=== PATIENT | male | born 1975 | race Caucasian/White ===

== ENCOUNTER 2019-02-18 20:29 | Emergency (ER) | payer MEDICAID, OTHER ==
[2019-02-18 20:38] VITALS: BP 144/91
--- NOTE | 2019-02-18 21:35 | EDM.PDOC ---
ED HPI GENERAL MEDICAL PROBLEM - General Chief Complaint: Skin Complaint Stated Complaint: RASH ON ARMS Time Seen by Provider: 02/18/19 21:10 Source of Information: Reports: Patient, RN Notes Reviewed, Significant Other ( Girlfriend) History Limitations: Reports: No Limitations - History of Present Illness INITIAL COMMENTS - FREE TEXT/NARRATIVE: The patient states that he has had a rash to his bilateral axillae, associated with a tingling and burning sensation, that has been coming and going for the past 3 months. He states that the rash will typically be present for 3-7 days, then gone for 4-5 days. He has not identified any modifiers, such as eating hot or sweaty, or whether or not he bathes. He has not tried any itpq-gis-wybmawi or home remedies to treat his symptoms. He has not sought medical evaluation of this prior to today. He patient's PCP is at the [facility]. Bilateral Axillary Pain Score (Numeric/FACES): 4 - Related Data Allergies Allergy/AdvReac Type Severity Reaction Status Date / Time Penicillins Allergy Hives Verified 02/18/19 20:36 Home Meds: Home Meds . [No Known Home Meds] 09/19/16 [History] Past Medical History Endocrine/Metabolic History: Reports: Obesity/BMI 30+ - Infectious Disease History Infectious Disease History: Reports: Hepatitis C (Hep C screen 09/21/2016 strongly positive) - Past Surgical History HEENT Surgical History: Reports: Adenoidectomy, Tonsillectomy Musculoskeletal Surgical History: Reports: Other (See Below) (Left 5th finger reattachment) Dermatological Surgical History: Reports: Skin Graft (right thumb) Social & Family History - Tobacco Use Smoking Status *Q: Current Every Day Smoker Years of Tobacco use: 24 Packs/Tins Daily: 1 - Caffeine Use Caffeine Use: Reports: Coffee, Soda - Alcohol Use Alcohol Use History: Yes Days Per Week of Alcohol Use: 7 Number of Drinks Per Day: 10 Total Drinks Per Week: 70 Alcohol Use Frequency: Daily - Recreational Drug Use Recreational Drug Use: No - Living Situation & Occupation Living situation: Reports: Single, Alone Occupation: Employed ([employer]) ED ROS GENERAL - Review of Systems Review Of Systems: ROS reveals no pertinent complaints other than HPI. ED EXAM, SKIN/RASH Exam: See Below Exam Limited By: No Limitations General Appearance: Alert, WD/WN, No Apparent Distress Skin: Warm, Dry, Intact, Normal Color, Erythema (Patches of erythema in each of the intertriginous areas of the patient's bilateral axilla, with a few satellite lesions, consistent with Mindi dermatitis.) Lymphatic: No Adenopathy Course - Vital Signs Last Recorded V/S: Last Vital Signs Temp 36.2 C 02/18/19 20:37 Pulse 84 02/18/19 20:37 Resp 16 02/18/19 20:37 BP 144/91 H 02/18/19 20:37 Pulse Ox 96 02/18/19 20:37 - Re-Assessments/Exams Free Text/Narrative Re-Assessment/Exam: 02/18/19 21:30 The patient appears to have a candidal infection to the intertriginous areas of his bilateral axillae. There is an increased risk of this occurring in patients with diabetes, therefore for today's purposes I have ordered an Accu-Chek, but no other blood work is necessary. Treatment consists of an ltba-csx-bwpkvay antifungal cream or spray, such as clortrimazole, miconazole, or tolnaftate. In review of the patient's prior medical records, I see that his hepatitis C antibody was strongly reactive on 09/19/2016. The patient tells me that he subsequently followed up with a Regulatory Compliance Manager, who told him that his hepatitis was due to heavy alcohol intake, and not due to hepatitis C, however, I have no way of determining if a confirmatory hepatitis C test was performed. I am therefore recommending that the patient follow up with his PCP at the [facility] to be rechecked for hepatitis C, particularly in light that the patient continues to drink heavily. If the patient does in fact have hepatitis C, alcohol significantly increases his risk of developing liver cancer. 02/18/19 22:03 Notified that the patient eloped the ED, without notifying the staff, prior to having his blood sugar checked. Departure - Departure Time of Disposition: 22:03 Disposition: Eloped 07 Condition: Good Clinical Impression: Mindi infection of flexural skin - Discharge Information *PRESCRIPTION DRUG MONITORING PROGRAM REVIEWED*: Not Applicable *COPY OF PRESCRIPTION DRUG MONITORING REPORT IN PATIENT CAILIN: Not Applicable Referrals: PCP,None [Primary Care Provider] -
== END 2019-02-18 21:50 | disposition left against medical advice (07) ==
LOC: JD.ED 20:29
DX: B37.2 Candidiasis of skin and nail (principal); F17.210 Nicotine dependence, cigarettes, uncomplicated; Z88.0 Allergy status to penicillin
CPT/HCPCS: 99281; 99282

== ENCOUNTER 2019-03-13 22:44 | Emergency (ER) | payer OTHER ==
[2019-03-13 22:54] VITALS: BP 171/100
--- NOTE | 2019-03-13 23:04 | EDM.PDOC ---
ED HPI GENERAL MEDICAL PROBLEM - General Chief Complaint: Skin Complaint Stated Complaint: groin pain Time Seen by Provider: 03/13/19 23:04 - History of Present Illness INITIAL COMMENTS - FREE TEXT/NARRATIVE: 44-year-old male since the emergency room with some lumps in his lower abdomen. Patient has had these lumps for a couple weeks he tried to drain one several days ago and released a very small amount of exudative material. He has some discomfort in this area. Patient has not had any fevers or chills. He has not had any other abdominal discomfort no nausea vomiting constipation diarrhea he said no burning or frequency with urination no testicular pain. Lower Abdomen Pain Score (Numeric/FACES): 7 - Related Data Allergies Allergy/AdvReac Type Severity Reaction Status Date / Time Penicillins Allergy Hives Verified 02/18/19 20:36 Home Meds: Home Meds Doxycycline [Vibramycin] 100 mg PO BID #20 cap 03/13/19 [Rx] Past Medical History Gastrointestinal History: Reports: Other (See Below) Other Gastrointestinal History: acute hepatits d/t alcohol Musculoskeletal History: Reports: Other (See Below) Other Musculoskeletal History: Tendon repair Psychiatric History: Reports: Anxiety Endocrine/Metabolic History: Reports: Obesity/BMI 30+ - Infectious Disease History Infectious Disease History: Reports: Hepatitis C - Past Surgical History HEENT Surgical History: Reports: Adenoidectomy, Tonsillectomy Musculoskeletal Surgical History: Reports: Other (See Below) Dermatological Surgical History: Reports: Skin Graft Social & Family History - Tobacco Use Smoking Status *Q: Current Every Day Smoker Years of Tobacco use: 5 Packs/Tins Daily: 0.2 - Caffeine Use Caffeine Use: Reports: Coffee, Soda - Recreational Drug Use Recreational Drug Use: No - Living Situation & Occupation Living situation: Reports: Single, Alone Occupation: Employed ([email or web address]) ED ROS GENERAL - Review of Systems Review Of Systems: See Below Constitutional: Reports: No Symptoms HEENT: Reports: Vertigo Cardiovascular: Reports: No Symptoms GI/Abdominal: Reports: No Symptoms : Reports: No Symptoms Neurological: Reports: No Symptoms, Other (He is a chronic alcoholic and is located different methods to quit drinking we've given him some information to follow-up at the [facility]) ED EXAM, SKIN/RASH Exam: See Below Exam Limited By: No Limitations General Appearance: Alert, No Apparent Distress Head: Atraumatic, Normocephalic Neck: Normal Inspection, Supple, Non-Tender, Full Range of Motion Respiratory/Chest: No Respiratory Distress, Lungs Clear, Normal Breath Sounds, No Accessory Muscle Use, Chest Non-Tender Cardiovascular: Normal Peripheral Pulses, Regular Rate, Rhythm, No Edema, No Gallop, No JVD, No Murmur, No Rub GI/Abdominal: Normal Bowel Sounds, Soft, Non-Tender Neurological: Alert, Oriented, Normal Cognition Skin: Warm, Dry, Intact, Other (He has 4 small abscesses in varying degrees of healing over the mons pubis the central his largest with with she is circular roughly 1-1/2 cm and tender no area to drain at this point this is a one he worked on several days ago.) Course - Vital Signs Last Recorded V/S: Last Vital Signs Temp 36.9 C 03/13/19 22:51 Pulse 107 H 03/13/19 22:51 Resp 20 03/13/19 22:51 BP 171/100 H 03/13/19 22:51 Pulse Ox 171 H 03/13/19 22:51 Departure - Departure Time of Disposition: 23:18 Disposition: Home, Self-Care 01 Clinical Impression: Folliculitis - Discharge Information Prescriptions: Doxycycline [Vibramycin] 100 mg PO BID #20 cap Referrals: PCP,None [Primary Care Provider] - Forms: ED Department Discharge Additional Instructions: Return to the emergency room with any questions problems worsening symptoms. Take the doxycycline, this is an antibiotic, one twice daily until all gone use warm compresses 4-5 times a day over the affected skin. Follow-up in your clinic early next week for recheck
[2019-03-13] MEDS ORDERED: Doxycycline 100 MG Cap PO ONE (23:19)
== END 2019-03-13 23:30 | disposition home or self-care (01) ==
LOC: JD.ED 22:44
DX: L73.9 Follicular disorder, unspecified (principal); E66.9 Obesity, unspecified; F17.210 Nicotine dependence, cigarettes, uncomplicated; Z98.890 Other specified postprocedural states; Z88.0 Allergy status to penicillin
CPT/HCPCS: 99283; A9270

== ENCOUNTER 2019-03-31 17:32 | Emergency (ER) | payer OTHER ==
[2019-03-31 17:46] VITALS: BP 150/87
[2019-03-31] MEDS ORDERED: LORazepam 2 MG/ML SDV IVPUSH ONE (18:21)
[2019-03-31] MEDS ORDERED: Dextrose 5%-0.9% NaCl 1,000 ML IV SCH (18:30)
--- NOTE | 2019-03-31 19:30 | CT ---
Head CT Technique: Multiple axial sections through the brain were obtained. Intravenous contrast was not utilized. Comparison: No prior intracranial imaging is available. Findings: Ventricles along the basal cisterns and sulci over convexities are within normal limits for the patient's age. No abnormal parenchymal densities are seen. No evidence of intracranial hemorrhage. No midline shift or mass effect is seen. Bone window settings shows no discrete calvarial abnormality. Visualized sinuses are clear. Impression: 1. Nothing acute is appreciated on noncontrast head CT exam. Consider nonemergent MRI to further evaluate patient's symptoms. Diagnostic code #1
--- NOTE | 2019-03-31 20:10 | EDM.PDOC ---
ED HPI GENERAL MEDICAL PROBLEM - General Chief Complaint: Neurological Problem Stated Complaint: SEIZURE AT WORK Time Seen by Provider: 03/31/19 17:54 Source of Information: Reports: Patient History Limitations: Reports: No Limitations - History of Present Illness INITIAL COMMENTS - FREE TEXT/NARRATIVE: 44 y/o male presents to ER with cc he had a witnessed seizure at work today. Patient reports that he has not had a seizure in the past. He does state that he feels foggy. He admits to drinking alcohol 3-4 times in the week he drinks beer as well as whiskey and drinks up to a fifth of more depending on what is going on. He admits his last drink was yesterday afternoon. He denies any neck pain and head pain blurred vision weakness or fatigue. He denies any fever or chills. He does not take any medications on a regular basis. His primary care provider is at the [place]. He is accompanied by his girlfriend. Onset: Today, Sudden Onset Date: 03/31/19 Onset Time: 16:00 Duration: Resolved Prior to Arrival Severity: Mild Improves with: Reports: None Worsens with: Reports: None Associated Symptoms: Reports: Seizure, Other (short term memory loss). Denies: Confusion, Chest Pain, Fever/Chills, Nausea/Vomiting, Shortness of Breath, Syncope - Related Data Allergies Allergy/AdvReac Type Severity Reaction Status Date / Time Penicillins Allergy Hives Verified 03/31/19 17:46 Home Meds: Home Meds hydrOXYzine pamoate [Vistaril] 25 mg PO Q6H 5 Days #20 cap 03/31/19 [Rx] Past Medical History Gastrointestinal History: Reports: Other (See Below) Other Gastrointestinal History: acute hepatits d/t alcohol Musculoskeletal History: Reports: Other (See Below) Other Musculoskeletal History: Tendon repair Psychiatric History: Reports: Anxiety Endocrine/Metabolic History: Reports: Obesity/BMI 30+ - Infectious Disease History Infectious Disease History: Reports: Hepatitis C - Past Surgical History HEENT Surgical History: Reports: Adenoidectomy, Tonsillectomy Musculoskeletal Surgical History: Reports: Other (See Below) Dermatological Surgical History: Reports: Skin Graft Social & Family History - Tobacco Use Smoking Status *Q: Light Tobacco Smoker Years of Tobacco use: 15 Packs/Tins Daily: 0.2 - Caffeine Use Caffeine Use: Reports: Soda - Recreational Drug Use Recreational Drug Use: No - Living Situation & Occupation Living situation: Reports: Single, Alone Occupation: Employed ([employer]) ED ROS GENERAL - Review of Systems Review Of Systems: See Below Constitutional: Denies: Fever, Chills HEENT: Reports: No Symptoms Respiratory: Denies: Shortness of Breath Cardiovascular: Denies: Chest Pain Endocrine: Reports: Fatigue GI/Abdominal: Denies: Abdominal Pain : Reports: No Symptoms Musculoskeletal: Denies: Neck Pain, Back Pain Skin: Reports: No Symptoms Psychiatric: Reports: Other ("feels foggy") Hematologic/Lymphatic: Reports: No Symptoms Immunologic: Reports: No Symptoms - Physical Exam Exam: See Below Exam Limited By: No Limitations General Appearance: Alert, WD/WN, No Apparent Distress Eye Exam: Bilateral Eye: EOMI, PERRL Ears: Normal External Exam, Normal Canal, Hearing Grossly Normal, Normal TMs Nose: Normal Inspection, Normal Mucosa, No Blood Throat/Mouth: Normal Inspection, Normal Lips, Normal Teeth, Normal Gums, Normal Oropharynx, Normal Voice, No Airway Compromise Head Exam: Atraumatic, Normocephalic Neck: Normal Inspection, Supple, Non-Tender, Full Range of Motion Respiratory/Chest: No Respiratory Distress, Lungs Clear, Normal Breath Sounds, No Accessory Muscle Use, Chest Non-Tender Cardiovascular: Normal Peripheral Pulses, Regular Rate, Rhythm, No Edema, No Gallop, No JVD, No Murmur, No Rub GI/Abdominal: Normal Bowel Sounds, Soft, Non-Tender, No Organomegaly, No Distention, No Abnormal Bruit, No Mass, Pelvis Stable Neuro Exam (Abbreviated): Alert, Oriented, CN II-XII Intact, Normal Cognition, Normal Gait, Normal Reflexes, No Motor/Sensory Deficits Back Exam: Normal Inspection, Full Range of Motion Extremities: Normal Inspection, Normal Range of Motion, Non-Tender, No Pedal Edema, Normal Capillary Refill Psychiatric: Normal Affect, Normal Mood, Anxious Skin Exam: Warm, Dry, Intact, Normal Color, No Rash Course - Vital Signs Last Recorded V/S: Last Vital Signs Temp 98.0 F 03/31/19 17:39 Pulse 97 03/31/19 17:39 Resp 18 03/31/19 17:39 BP 150/87 H 03/31/19 17:39 Pulse Ox 97 03/31/19 17:39 - Orders/Labs/Meds Orders: Active Orders 24 hr Category Date Time Status Dextrose 5%-0.9% NaCl [Dextrose 5%-Normal Saline] 1,000 Med 03/31/19 18:30 Active ml IV ASDIRECTED Medication Orders Dextrose/Sodium Chloride (Dextrose 5%-Normal Saline) 1,000 mls @ 999 mls/hr IV ASDIRECTED LILLIANA Last Admin: 03/31/19 18:45 Dose: 999 mls/hr Labs: Laboratory Tests 03/31/19 03/31/19 Range/Units 18:47 18:47 WBC 6.93 (4.23-9.07) K/mm3 RBC 4.76 (4.63-6.08) M/mm3 Hgb 15.9 (13.7-17.5) gm/L Hct 45.3 (40.1-51.0) % MCV 95.2 H (79.0-92.2) fl MCH 33.4 H (25.7-32.2) pg MCHC 35.1 (32.2-35.5) g/dl RDW Std Deviation 44.7 H (35.1-43.9) fL Plt Count 195 (163-337) K/mm3 MPV 9.9 (9.4-12.3) fl Neut % (Auto) 80.7 H (34.0-67.9) % Lymph % (Auto) 8.5 L (21.8-53.1) % [place] % (Auto) 10.0 (5.3-12.2) % Eos % (Auto) 0.4 L (0.8-7.0) Baso % (Auto) 0.3 (0.1-1.2) % Neut # (Auto) 5.59 H (1.78-5.38) K/mm3 Lymph # (Auto) 0.59 L (1.32-3.57) K/mm3 [place] # (Auto) 0.69 (0.30-0.82) K/mm3 Eos # (Auto) 0.03 L (0.04-0.54) K/mm3 Baso # (Auto) 0.02 (0.01-0.08) K/mm3 Manual Slide Review Normal smear Sodium 137 (136-145) mEq/L Potassium 4.0 (3.5-5.1) mEq/L Chloride 100 (98-107) mEq/L Carbon Dioxide 25 (21-32) mEq/L Anion Gap 16.0 H (5-15) BUN 10 (7-18) mg/dL Creatinine 0.9 (0.7-1.3) mg/dL Est Cr Clr Drug Dosing 123.88 mL/min Estimated GFR (MDRD) > 60 (>60) mL/min BUN/Creatinine Ratio 11.1 L (14-18) Glucose 120 H (74-106) mg/dL Calcium 9.7 (8.5-10.1) mg/dL Magnesium 1.9 (1.8-2.4) mg/dl Total Bilirubin 1.1 H (0.2-1.0) mg/dL AST 69 H (15-37) U/L ALT 150 H (16-63) U/L Alkaline Phosphatase 104 (46-116) U/L Total Protein 7.6 (6.4-8.2) g/dl Albumin 4.3 (3.4-5.0) g/dl Globulin 3.3 gm/dL Albumin/Globulin Ratio 1.3 (1-2) Meds: Medications Generic Name Dose Route Start Last Admin Trade Name Freq PRN Reason Stop Dose Admin Dextrose/Sodium Chloride 1,000 mls @ 999 mls/hr 03/31/19 18:30 03/31/19 18:45 Dextrose 5%-Normal Saline IV 999 mls/hr ASDIRECTED LILLIANA Administration Discontinued Medications Generic Name Dose Route Start Last Admin Trade Name Freq PRN Reason Stop Dose Admin Lorazepam 2 mg 03/31/19 18:21 03/31/19 18:45 Ativan IVPUSH 03/31/19 18:22 2 mg ONETIME ONE Administration - Re-Assessments/Exams Free Text/Narrative Re-Assessment/Exam: 03/31/19 20:21 WBC 6.93 RBC 4.76 H&H 15.9 and 45.3, sodium 137 potassium 4.0 chloride 100 CO2 25 on 10 creatinine 0.9. Glucose 120 calcium 9.7 magnesium 1.9 total bilirubin 1.1 AST 69 ALT 150 alkaline phosphatase [address] revealed nothing acute is appreciated a noncontrast head CT. I feel that his seizure may be due to the sudden intake of alcohol. I discussed with the patient about different options for stopping alcohol with proper medication treatment and monitoring. He declined medication at this time because he needs to work. I will refer the patient to [facility] for further evaluation and treatment. Patient is requesting something to help him sleep. I will discharge home with Atarax PRN for sleep and agitation. Departure - Departure Time of Disposition: 20:27 Disposition: Home, Self-Care 01 Condition: Good Clinical Impression: Seizure due to alcohol withdrawal Qualifiers: Complication of substance-induced condition: uncomplicated Qualified Code(s): F10.230 - Alcohol dependence with withdrawal, uncomplicated - Discharge Information Prescriptions: hydrOXYzine pamoate [Vistaril] 25 mg PO Q6H 5 Days #20 cap Instructions: Alcohol Use Disorder, Alcohol Withdrawal Syndrome, [id number] Referrals: PCP,None [Primary Care Provider] - Additional Instructions: You have been diagnosis with alcohol withdrawal seizure. I recommend you follow up with [facility] [phone] for outpatient counseling and treatment. Follow up with your PCP. You received Ativan while you were here, do not drink, drive or operate machinery. You have been given Vistaril for agitation or sleep. You may take 1-2 pills every 6 hours as needed. Do not drink, drive or operate machinery while taking this medication. Return to the emergency room for any acute worsening symptoms. - My Orders Last 24 Hours: My Active Orders 03/31/19 18:30 Dextrose 5%-0.9% NaCl [Dextrose 5%-Normal Saline] 1,000 ml IV ASDIRECTED - Assessment/Plan Last 24 Hours: My Active Orders 03/31/19 18:30 Dextrose 5%-0.9% NaCl [Dextrose 5%-Normal Saline] 1,000 ml IV ASDIRECTED
== END 2019-03-31 20:45 | disposition home or self-care (01) ==
LOC: JD.ED 17:32
DX: F10.230 Alcohol dependence with withdrawal, uncomplicated (principal); R56.9 Unspecified convulsions; F17.210 Nicotine dependence, cigarettes, uncomplicated; Z88.0 Allergy status to penicillin
CPT/HCPCS: 36415; 70450; 80053; 83735; 85025; 96361; 96374; 99285; J2060; J7042; 99284

== ENCOUNTER 2019-07-13 22:20 | Emergency (ER) | payer SELFPAY ==
[2019-07-13 22:53] VITALS: BP 154/93; PULSE 100
== END 2019-07-13 22:55 | disposition left against medical advice (07) ==
LOC: JD.ED 22:20
DX: Z53.21 Procedure and treatment not carried out due to patient leaving prior to being seen by health care provider (principal)
CPT/HCPCS: 99283

== ENCOUNTER 2019-07-19 11:53 | Emergency (ER) | payer OTHER ==
[2019-07-19 12:05] VITALS: PULSE 91
[2019-07-19 12:13] VITALS: BP 167/109
--- NOTE | 2019-07-19 12:15 | EDM.PDOC ---
ED HPI GENERAL MEDICAL PROBLEM - General Chief Complaint: Lower Extremity Injury/Pain Stated Complaint: RIGHT LEG AND LEFT FOOT NUMBNESS Time Seen by Provider: 07/19/19 12:04 Source of Information: Reports: Patient History Limitations: Reports: No Limitations - History of Present Illness INITIAL COMMENTS - FREE TEXT/NARRATIVE: The patient presents with right leg pain and numbness to the right foot. He also has some numbness to the left foot. He said 5 days ago this all started when he was getting out of bed he felt a pop in his right leg. He has pain to the back of his leg. It feels better to stand. He also has some numbness to his right foot and left foot. He has minimal low back pain. This has never happened before. He has no numbness or weakness. He has no bowel or bladder problems. He has no other symptoms such as fever, chills, cough, congestion, runny nose, chest pain, shortness of breath, abdominal pain, nausea or vomiting. Onset: Sudden Duration: Day(s): (5) Location: Reports: Lower Extremity, Right Quality: Reports: Sharp Severity: Severe Improves with: Reports: Movement Worsens with: Reports: Other (Sitting) Context: Denies: Trauma Associated Symptoms: Reports: No Other Symptoms Right Upper Leg Pain Score (Numeric/FACES): 8 - Related Data Allergies Allergy/AdvReac Type Severity Reaction Status Date / Time Penicillins Allergy Hives Verified 07/19/19 12:05 Home Meds: Home Meds Cyclobenzaprine [Flexeril] 10 mg PO TID PRN #20 tab 07/19/19 [Rx] Hydrocodone/Acetaminophen [Hydrocodon-Acetaminophen 5-325] 1 - 2 each PO Q6HR PRN #20 tablet 07/19/19 [Rx] Zolpidem Tartrate [Ambien] 5 mg PO BEDTIME PRN #20 tablet 07/19/19 [Rx] Past Medical History Gastrointestinal History: Reports: Other (See Below) Other Gastrointestinal History: acute hepatits d/t alcohol Musculoskeletal History: Reports: Other (See Below) Other Musculoskeletal History: Tendon repair left pinky finger Psychiatric History: Reports: Addiction, Anxiety Endocrine/Metabolic History: Reports: Obesity/BMI 30+ - Infectious Disease History Infectious Disease History: Reports: Hepatitis C - Past Surgical History HEENT Surgical History: Reports: Adenoidectomy, Tonsillectomy Musculoskeletal Surgical History: Reports: Other (See Below) Dermatological Surgical History: Reports: Skin Graft Social & Family History - Family History Family Medical History: Noncontributory - Tobacco Use Smoking Status *Q: Current Every Day Smoker Years of Tobacco use: 10 Packs/Tins Daily: 1 - Caffeine Use Caffeine Use: Reports: Coffee, Soda - Alcohol Use Days Per Week of Alcohol Use: 7 Number of Drinks Per Day: 10 Total Drinks Per Week: 70 - Recreational Drug Use Recreational Drug Use: No - Living Situation & Occupation Living situation: Reports: Single, Alone Occupation: Employed ([employer]) Review of Systems - Review of Systems Review Of Systems: See Below Constitutional: Reports: No Symptoms Eyes: Reports: No Symptoms Ears: Reports: No Symptoms Nose: Reports: No Symptoms Mouth/Throat: Reports: No Symptoms Respiratory: Reports: No Symptoms Cardiovascular: Reports: No Symptoms GI/Abdominal: Reports: No Symptoms Musculoskeletal: Reports: Other (Pain to the right leg) ED EXAM, GENERAL - Physical Exam Exam: See Below Exam Limited By: No Limitations General Appearance: Alert, No Apparent Distress Ears: Normal External Exam Nose: Normal Inspection Head: Atraumatic, Normocephalic Neck: Normal Inspection Respiratory/Chest: No Respiratory Distress, Lungs Clear, Normal Breath Sounds Cardiovascular: Regular Rate, Rhythm, No Edema, No Murmur GI/Abdominal: Soft, Non-Tender, No Organomegaly, No Mass Back Exam: Normal Inspection Extremities: Other (Pain in the buttocks upon palpation on the right. More pain when straitening his leg. Good sensation and pulses distally.) Course - Vital Signs Last Recorded V/S: Last Vital Signs Temp 96.8 F 07/19/19 12:01 Pulse 91 07/19/19 12:01 Resp 16 07/19/19 12:01 BP 167/109 H 07/19/19 12:12 Pulse Ox 97 07/19/19 12:01 - Orders/Labs/Meds Orders: Active Orders 24 hr Category Date Time Status Hip Min 2V or 3V Rt [CR] Stat Exams 07/19/19 12:11 Taken Lumbar Spine 2 or 3V [CR] Stat Exams 07/19/19 12:10 Taken - Re-Assessments/Exams Free Text/Narrative Re-Assessment/Exam: 07/19/19 12:34 I ordered an x-ray of his lumbar spine and right hip. 07/19/19 12:58 His x-rays look good just some minor degenerative changes. He does have sciatica. I will get him on flexeril and hydrocodone and motrin. He also says he has been having trouble sleeping. He tried some hydralazine but it did not help. I will try some ambien. Departure - Departure Time of Disposition: 13:00 Disposition: Home, Self-Care 01 Condition: Good Clinical Impression: Sciatica Qualifiers: Laterality: right Qualified Code(s): M54.31 - Sciatica, right side - Discharge Information *PRESCRIPTION DRUG MONITORING PROGRAM REVIEWED*: No *COPY OF PRESCRIPTION DRUG MONITORING REPORT IN PATIENT CAILIN: No Prescriptions: Hydrocodone/Acetaminophen [Hydrocodon-Acetaminophen 5-325] 1 - 2 each PO Q6HR PRN #20 tablet PRN Reason: Pain Cyclobenzaprine [Flexeril] 10 mg PO TID PRN #20 tab PRN Reason: Pain Zolpidem Tartrate [Ambien] 5 mg PO BEDTIME PRN #20 tablet PRN Reason: Sleep Referrals: Shreya Conley MD [Primary Care Provider] - Janeth Mendenhall PA-C [Physician [employer]] - 1 Week Forms: ED Department Discharge Additional Instructions: Take the medicine as prescribed. Follow up with physical therapy. I have put an order in for an MRI of your back. They will call you with a time. Follow up with Janeth Mendenhall in our clinic for results. Please return if you are worse. - My Orders Last 24 Hours: My Active Orders 07/19/19 12:10 Lumbar Spine 2 or 3V [CR] Stat 07/19/19 12:11 Hip Min 2V or 3V Rt [CR] Stat - Assessment/Plan Last 24 Hours: My Active Orders 07/19/19 12:10 Lumbar Spine 2 or 3V [CR] Stat 07/19/19 12:11 Hip Min 2V or 3V Rt [CR] Stat
--- NOTE | 2019-07-21 09:40 | CR ---
Right hip: AP and frog-leg lateral views of the right hip were obtained. Comparison: No previous study. Severe joint space narrowing is seen within the superior right hip. No fracture or other bony abnormality is seen. Impression: 1. Severe joint space narrowing within the right hip. Diagnostic code #3
--- NOTE | 2019-07-21 09:40 | CR ---
Lumbar spine: AP and lateral views of the lumbar spine were obtained. Coned down lateral views centered to the lumbosacral junction were also obtained. Comparison: No previous study. Mild scoliosis is noted. Vertebral body heights are maintained. Diffuse posterior disc space narrowing is seen. Mild diffuse anterior osteophytes are seen. Pedicles as well as visualized transverse and spinous processes are intact. No subluxation or acute fracture is seen. 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 Mild vascular calcification is seen. Impression: 1. Partial transitional segment at the lumbosacral junction. 2. Mild disc space narrowing scattered throughout the lumbar spine with endplate osteophytes. 3. Nothing acute is seen. Diagnostic code #2
== END 2019-07-19 13:15 | disposition home or self-care (01) ==
LOC: JD.ED 11:53
DX: M54.31 Sciatica, right side (principal); E66.9 Obesity, unspecified; F17.210 Nicotine dependence, cigarettes, uncomplicated; Z88.0 Allergy status to penicillin; Z98.890 Other specified postprocedural states; Z68.30 Body mass index [BMI] 30.0-30.9, adult
CPT/HCPCS: 72100; 72100-26; 73502-26-RT; 73502-RT; 99283; 99283-25